=== PATIENT | male | born 1985 | race Hispanic/Latino ===

== ENCOUNTER 2017-01-17 16:58 | Emergency (ER) | payer OTHER ==
[2017-01-17 18:18] LABS: Basophils % (Auto) 0.5 % (0.0-1.8); Eosinophils % (Auto) 0.3 % (0.0-4.3); Hematocrit 47.7 % (35.5-45.6); Hemoglobin 15.9 gm/dl (11.8-15.2); Mean Corpuscular HGB Conc 33 % (32-34); Mean Corpuscular Hemoglobin 27 pg (28-32); Mean Corpuscular Volume 83 fl (84-94); Platelet Count 224 K/mm3 (140-440); Red Blood Count 5.79 M/mm3 (3.65-5.03); Red Cell Distribution Width 15.5 % (13.2-15.2); White Blood Count 8.4 K/mm3 (4.5-11.0)
[2017-01-17 18:28] LABS: Anion Gap 18 mmol/L; BUN/Creatinine Ratio 22.22; Blood Urea Nitrogen 20 mg/dL (9-20); Calcium 9.7 mg/dL (8.4-10.2); Carbon Dioxide 25 mmol/L (22-30); Chloride 98.8 mmol/L (98-107); Glucose 87 mg/dL (75-100); Potassium 3.6 mmol/L (3.6-5.0); Sodium 138 mmol/L (137-145)
[2017-01-17 20:18] VITALS: BP 148/99
== END 2017-01-17 20:18 | disposition left against medical advice (07) ==
LOC: ED 16:58
DX: R07.9 Chest pain, unspecified (principal); Z53.21 Procedure and treatment not carried out due to patient leaving prior to being seen by health care provider
CPT/HCPCS: 36415; 80048; 84484; 85025; 93005; 93010

== ENCOUNTER 2017-03-11 08:46 | Day surgery (SDC) | payer OTHER ==
[2017-03-11] MEDS ORDERED: LOPRESSOR PO ONE (09:25)
[2017-03-11] MEDS ORDERED: LOPRESSOR ONE (09:25)
[2017-03-11] MEDS ORDERED: NITROSTAT SL ONE (10:01)
[2017-03-11] MEDS ORDERED: LOPRESSOR IV ONE (11:30)
--- NOTE | 2017-03-11 12:02 | Cat Scan Report ---
LIMITED CT OF THE CHEST PER CT CORONARY ANGIOGRAPHY PROTOCOL: Limited CT of the chest per CT coronary angiography protocol is submitted. The cardiac portion of the exam has been previously interpreted by the Senior Producer. The included portions of the lungs appear clear without evidence for nodule, mass or infiltrate. The included pleural spaces are clear. No mediastinal or hilar adenopathy is evident. Included upper abdomen and solid abdominal organs are grossly within normal limits. IMPRESSION: Normal limited CT of the chest as noted.
[2017-03-11 12:34] VITALS: BP 124/76
--- NOTE | 2017-03-11 16:31 | CT Calcium Scoring Report ---
Coronary Calcium Score Date of service: 03/11/17 Procedure: High-resolution computed tomographic imaging of the chest was performed on with particular attention paid to the coronary arteries. Images from the examination were analyzed for the presence and extent of coronary artery calcification, using coronary calcium quantification software. The patient tolerated the procedure well and there were no complications. The results of the coronary calcification analysis are provided below. The patient scores are compared with published data related to scores for people of a similar age and the same gender. - Findings Total Agatson Score: 0
--- NOTE | 2017-03-13 01:12 | Procedure Note ---
CARDIAC CT ANGIOGRAM REPORT INDICATION FOR PROCEDURE: Chest pain. Informed consent was obtained. DESCRIPTION OF PROCEDURE: The patient was brought to the cardiac CT angiography laboratory at [facility] in stable condition after a 4-hour fast. Cardiac CT coronary angiography was performed on the 64-slice scanner using the standard protocol. Heart rate was regulated by beta blockade. Sublingual nitroglycerin was administered prior to imaging. A coronary artery calcium score via the Agatston method was performed. Left ventricular systolic function was evaluated by the volumetric segmentation threshold based approach. After data acquisition and reconstruction at the computer console, the images were post processed and reoriented at the work station. Volume rendered images, multiplanar reformatted images, and maximum intensity images were generated and reviewed. Multiple phases of the cardiac cycle were assessed as necessary for image interpretation. The superior and inferior vena cava in the field of view appear normal. The ascending and descending aorta in the field of view appear normal. The pulmonary artery in the field of view appears normal. The pulmonary veins enter the left atrium appropriately. The left atrium and the left atrial appendage appear normal. The right ventricle and left ventricle appear normal. The interventricular septum and the interatrial septum appear normal. The right atrium appears normal. There are no intracardiac masses. The mitral and aortic valves appear normal. There is no pericardial effusion. Left ventriculography demonstrates normal end systolic and end diastolic chamber size, wall motion, and systolic wall thickening. The left ventricular ejection fraction is 52%. The coronary artery calcium score is zero. Coronary angiography reveals a right dominant system. The right coronary artery originates properly from the right coronary cusp. The right coronary artery appears normal. The left main coronary artery originates properly from the left coronary cusp. The left main coronary artery appears normal. The left anterior descending coronary artery and the diagonal branches appear normal. The circumflex coronary artery and the obtuse marginal branches appear normal. Cardiac CT angiography demonstrates normal cardiac chamber dimensions, wall motion, and left ventricular systolic function. This is a right dominant system. The coronary artery calcium score is zero. The left and right coronary arteries appear normal. The procedure was well tolerated. There were no complications. [facility]# [id number] MAGUE/NAS
== END 2017-03-11 11:40 | disposition home or self-care (01) ==
LOC: CATHLABREC 08:46 → EDSTATUS 09:45 → CATHLABREC 11:40
PROVIDERS: ATTEND Internal Medicine
DX: R07.9 Chest pain, unspecified (principal)
CPT/HCPCS: 75574; Q9967